=== PATIENT | male | born 1975 | race African-American/Black ===

== ENCOUNTER 2023-09-19 21:17 | Emergency (ER) | payer OTHER ==
[2023-09-19 21:26] VITALS: BP 141/73; PULSE 100; RESP 18; TEMP 97.9; BMI 39.0
== END 2023-09-20 01:06 | disposition home or self-care (01) ==
LOC: JER 21:17
DX: R09.89 Other specified symptoms and signs involving the circulatory and respiratory systems (principal); R05.9 Cough, unspecified
CPT/HCPCS: 70490-TC; 99284-25

== ENCOUNTER 2023-10-25 17:14 | Emergency (ER) | payer OTHER ==
[2023-10-25 17:55] VITALS: BMI 48.8
[2023-10-25 19:14] VITALS: BP 135/90; PULSE 104; RESP 20
== END 2023-10-25 19:30 | disposition home or self-care (01) ==
LOC: JER 17:14
DX: R06.02 Shortness of breath (principal); R09.89 Other specified symptoms and signs involving the circulatory and respiratory systems
CPT/HCPCS: 99283-25